=== PATIENT | male | born 1970 | race Caucasian/White ===

== ENCOUNTER 2019-12-09 10:07 | Emergency (ER) | payer SELFPAY ==
[~2019-12-09] VITALS: Ht 177.8 cm; Wt 81.6 kg
[2019-12-09 10:30] VITALS: BP_SYST 166
--- NOTE | 2019-12-09 10:30 | NUR ---
Patient to ER bed 7 to gown for evaluation. Side rails up.
--- NOTE | 2019-12-09 10:31 | NUR ---
Patient is awake, alert, and oriented x4. Patient reports pain in lower left back started 2 weeks ago, got a little better. Yesterday felt a "zap". He is off today and decided to come to the ER to get checked out.
--- NOTE | 2019-12-09 10:40 | NUR ---
ER Dr. Harris at bedside examining patient.
[2019-12-09] MEDS ORDERED: KETOROLAC TROMETHAMINE 60 MG/2 ML VIAL IM ONE ×2 (10:45→11:03)
--- NOTE | 2019-12-09 10:56 | NUR ---
Patient transported to radiology via wheelchair, accompanied by optical fabrication technician.
--- NOTE | 2019-12-09 11:15 | NUR ---
Returned from radiology, back to [facility].
[2019-12-09 12:03] VITALS: BP_SYST 146
--- NOTE | 2019-12-09 12:03 | NUR ---
Patient given written and verbal discharge instructions and verbalizes understanding. ER MD Harris discussed with patient the results and treatment provided. Patient in stable condition. ID arm band removed. Rx of Robaxin, Naprosyn given. Patient educated on pain management and to follow up with PMD. Pain Scale 0. Opportunity for questions provided and answered. Medication side effect fact sheet provided.
== END 2019-12-09 12:03 | disposition home or self-care (01) ==
LOC: SED 10:07
DX: M54.5 Low back pain (principal)
CPT/HCPCS: 72100; 96372; 99283; J1885

== ENCOUNTER 2020-01-03 09:10 | Emergency (ER) | payer OTHER ==
[~2020-01-03] VITALS: Ht 177.8 cm; Wt 89.8 kg
[2020-01-03 09:15] VITALS: BP_SYST 166
[2020-01-03] MEDS ORDERED: NACL 0.9% 1,000 ML IV ONE (09:20)
[2020-01-03] MEDS ORDERED: KETOROLAC TROMETHAMINE 30 MG VIAL IVP ONE (09:30)
[2020-01-03] MEDS ORDERED: DEXAMETHASONE SOD PHOSPHATE 10 MG/ML VIAL IVP ONE (09:30)
[2020-01-03 09:47] LABS: BASOPHILS % (AUTO) 0.5 % (0.0-2.0); EOSINOPHILS # (AUTO) 0.2 K/uL (0.0-0.4); EOSINOPHILS % (AUTO) 3.1 % (0.0-4.0); HEMATOCRIT 46.3 % (36-54); HEMOGLOBIN 15.7 g/dL (14.0-18.0); LYMPHOCYTES # (AUTO) 1.5 K/uL (1.0-5.5); LYMPHOCYTES % (AUTO) 24.2 % (20.5-51.5); MEAN CORPUSCULAR HEMOGLOBIN 32 pg (27-31); MEAN CORPUSCULAR HGB CONC 34 % (32-36); MEAN CORPUSCULAR VOLUME 94 fL (79.0-98.0); MONOCYTES # (AUTO) 0.5 K/uL (0.0-1.0); MONOCYTES % (AUTO) 7.4 % (1.7-9.3); NEUTROPHILS % (AUTO) 64.8 % (40.0-70.0); PLATELET COUNT (AUTO) 273 K/uL (130-430); RED BLOOD CELL COUNT(AUTO) 4.94 MIL/uL (4.2-6.2); RED CELL DISTRIBUTION WIDTH 13.1 % (9.0-15.0); WHITE BLOOD COUNT (AUTO) 6.2 K/uL (4.8-10.8)
[2020-01-03 09:54] LABS: CALCIUM 8.9 mg/dL (8.4-11.0); CREATININE 0.76 mg/dL (0.55-1.30); POTASSIUM 3.7 mmol/L (3.5-5.1)
[2020-01-03 10:00] LABS: ALBUMIN 3.8 g/dL (3.4-4.8); TOTAL BILIRUBIN 0.4 mg/dL (0.0-1.0)
[2020-01-03 10:15] LABS: BILIRUBIN,URINE NEGATIVE (NEGATIVE); BLOOD, URINE NEGATIVE (NEGATIVE); CLARITY/URINE CLEAR (CLEAR); COLOR,URINE YELLOW (YELLOW); GLUCOSE,URINE NEGATIVE (NEGATIVE); KETONES,URINE NEGATIVE (NEGATIVE); LEUKOCYTE ESTERASE ,URINE NEGATIVE (NEGATIVE); NITRITE, URINE NEGATIVE (NEGATIVE); PH,URINE 6.5 (5.0-8.0); PROTEIN URINE NEGATIVE (NEGATIVE); UROBILINOGEN,URINE 0.2 (0.2-1.0)
[2020-01-03 11:45] VITALS: BP_SYST 136
== END 2020-01-03 11:45 | disposition home or self-care (01) ==
LOC: SED 09:10
DX: M54.5 Low back pain (principal); M62.830 Muscle spasm of back; F17.210 Nicotine dependence, cigarettes, uncomplicated
CPT/HCPCS: 36415; 80053; 81003; 85025; 96374; 96375; 99283; J1100; J1885; J7030

== ENCOUNTER 2020-02-01 11:29 | Emergency (ER) | payer OTHER ==
[~2020-02-01] VITALS: Ht 177.8 cm; Wt 89.8 kg
[2020-02-01 11:40] VITALS: BP_SYST 153
--- NOTE | 2020-02-01 11:48 | NUR ---
Patient triaged and placed in waiting room. VSS and patient appears in no acute distress at this time. Accompanied by self, awaiting available bed, and MD notified of need for MSE.
--- NOTE | 2020-02-01 12:03 | NUR ---
Patient to ER bed 04 to gown for evaluation. Side rails up.
--- NOTE | 2020-02-01 12:07 | NUR ---
ER Dr. Johnston at bedside examining patient.
--- NOTE | 2020-02-01 12:07 | NUR ---
Patient ambulated to the bathroom with a steady gait. Urine specimen collected.
[2020-02-01] MEDS ORDERED: KETOROLAC TROMETHAMINE 60 MG/2 ML VIAL IM ONE (12:15)
--- NOTE | 2020-02-01 12:19 | NUR ---
Administered Toradol 60mg IM as ordered by Dr. Johnston. Patient tolerated the medication well. See eMAR for details.
--- NOTE | 2020-02-01 12:24 | NUR ---
Patient is taken to CT, in stable condition.
[2020-02-01 12:28] LABS: BASOPHILS % (AUTO) 0.6 % (0.0-2.0); EOSINOPHILS # (AUTO) 0.3 K/uL (0.0-0.4); EOSINOPHILS % (AUTO) 3.6 % (0.0-4.0); HEMATOCRIT 45.9 % (36-54); HEMOGLOBIN 15.5 g/dL (14.0-18.0); LYMPHOCYTES # (AUTO) 2.1 K/uL (1.0-5.5); LYMPHOCYTES % (AUTO) 27.2 % (20.5-51.5); MEAN CORPUSCULAR HEMOGLOBIN 31 pg (27-31); MEAN CORPUSCULAR HGB CONC 34 % (32-36); MEAN CORPUSCULAR VOLUME 93 fL (79.0-98.0); MONOCYTES # (AUTO) 0.7 K/uL (0.0-1.0); MONOCYTES % (AUTO) 9.2 % (1.7-9.3); NEUTROPHILS # (AUTO) 4.6 K/uL (1.8-7.7); NEUTROPHILS % (AUTO) 59.4 % (40.0-70.0); PLATELET COUNT (AUTO) 313 K/uL (130-430); RED BLOOD CELL COUNT(AUTO) 4.95 MIL/uL (4.2-6.2); RED CELL DISTRIBUTION WIDTH 12.8 % (9.0-15.0); WHITE BLOOD COUNT (AUTO) 7.7 K/uL (4.8-10.8)
[2020-02-01 12:29] LABS: BILIRUBIN,URINE NEGATIVE (NEGATIVE); BLOOD, URINE NEGATIVE (NEGATIVE); CLARITY/URINE CLEAR (CLEAR); COLOR,URINE YELLOW (YELLOW); GLUCOSE,URINE NEGATIVE (NEGATIVE); KETONES,URINE NEGATIVE (NEGATIVE); LEUKOCYTE ESTERASE ,URINE NEGATIVE (NEGATIVE); NITRITE, URINE NEGATIVE (NEGATIVE); PROTEIN URINE NEGATIVE (NEGATIVE); UROBILINOGEN,URINE 0.2 (0.2-1.0)
[2020-02-01 12:42] LABS: CALCIUM 9.2 mg/dL (8.4-11.0); CREATININE 0.75 mg/dL (0.55-1.30)
[2020-02-01 12:50] LABS: PROTHROMBIN TIME 9.7 SECS (9.5-12.5)
[2020-02-01 12:52] LABS: ALBUMIN 3.7 g/dL (3.4-4.8); TOTAL BILIRUBIN 0.3 mg/dL (0.0-1.0)
--- NOTE | 2020-02-01 14:00 | NUR ---
Patient given written and verbal discharge instructions and verbalizes understanding. ER MD discussed with patient the results and treatment provided. Patient in stable condition. ID arm band removed. Rx of [place], Motrin given. Patient educated on pain management and to follow up with PMD. Pain Scale 0/10. Opportunity for questions provided and answered. Medication side effect fact sheet provided.
[2020-02-01 14:01] VITALS: BP_SYST 123
== END 2020-02-01 14:01 | disposition home or self-care (01) ==
LOC: SED 11:29
DX: M54.5 Low back pain (principal); I10 Essential (primary) hypertension
CPT/HCPCS: 36415; 74176; 80053; 81003; 82150; 83690; 85025; 85610; 85730; 96372; 99284; J1885

== ENCOUNTER 2020-02-04 07:40 | Inpatient (IN) | payer OTHER ==
[~2020-02-04] VITALS: Ht 179.1 cm; Wt 83.0 kg
[2020-02-04] MEDS ORDERED: IBUP800T54 PO (07:50)
[2020-02-04] MEDS ORDERED: HYDR-2296 PO (07:50)
[2020-02-04 07:51] VITALS: BP_SYST 143
[2020-02-04] MEDS ORDERED: MORPHINE 4 MG/ML INJ. SYRINGE IVP ONE (08:15)
[2020-02-04] MEDS ORDERED: NACL 0.9% 1,000 ML IV ONE ×2 (09:00→09:30)
[2020-02-04] MEDS ORDERED: ONDANSETRON HCL 4 MG/2 ML VIAL IVP ONE ×2 (09:00→11:30)
[2020-02-04 09:05] LABS: BASOPHILS % (AUTO) 0.1 % (0.0-2.0); HEMATOCRIT 41.8 % (36-54); HEMOGLOBIN 14.1 g/dL (14.0-18.0); LYMPHOCYTES # (AUTO) 0.3 K/uL (1.0-5.5); LYMPHOCYTES % (AUTO) 1.7 % (20.5-51.5); MEAN CORPUSCULAR HEMOGLOBIN 31 pg (27-31); MEAN CORPUSCULAR HGB CONC 34 % (32-36); MEAN CORPUSCULAR VOLUME 92 fL (79.0-98.0); MONOCYTES # (AUTO) 0.8 K/uL (0.0-1.0); MONOCYTES % (AUTO) 4.4 % (1.7-9.3); NEUTROPHILS # (AUTO) 16.8 K/uL (1.8-7.7); NEUTROPHILS % (AUTO) 93.8 % (40.0-70.0); PLATELET COUNT (AUTO) 276 K/uL (130-430); RED BLOOD CELL COUNT(AUTO) 4.53 MIL/uL (4.2-6.2); RED CELL DISTRIBUTION WIDTH 12.8 % (9.0-15.0); WHITE BLOOD COUNT (AUTO) 17.9 K/uL (4.8-10.8)
[2020-02-04 09:06] LABS: CALCIUM 8.8 mg/dL (8.4-11.0); CREATININE 0.75 mg/dL (0.55-1.30); POTASSIUM 3.6 mmol/L (3.5-5.1)
[2020-02-04 09:10] LABS: ALBUMIN 3.6 g/dL (3.4-4.8); TOTAL BILIRUBIN 0.6 mg/dL (0.0-1.0)
[2020-02-04] MEDS ORDERED: PIPERACILLIN/TAZO 3.375 GM in NS 50 ML IV ONE (09:30)
[2020-02-04] MEDS ORDERED: VANCOMYCIN HCL 1,000 MG in NS 250 ML IV ONE (09:30)
[2020-02-04 09:35] LABS: PROTHROMBIN TIME 9.9 SECS (9.5-12.5)
[2020-02-04] MEDS ORDERED: VANCOMYCIN HCL 1000 MG/VIAL IV ONE (10:09)
[2020-02-04] MEDS ORDERED: PIPERACILLIN/TAZOBACTAM 3.375 GM/VIAL (ZOSYN) IV ONE (10:10)
[2020-02-04 10:24] LABS: BILIRUBIN,URINE NEGATIVE (NEGATIVE); BLOOD, URINE NEGATIVE (NEGATIVE); CLARITY/URINE CLEAR (CLEAR); COLOR,URINE YELLOW (YELLOW); GLUCOSE,URINE NEGATIVE (NEGATIVE); KETONES,URINE NEGATIVE (NEGATIVE); LEUKOCYTE ESTERASE ,URINE NEGATIVE (NEGATIVE); NITRITE, URINE NEGATIVE (NEGATIVE); PROTEIN URINE NEGATIVE (NEGATIVE); UROBILINOGEN,URINE 0.2 (0.2-1.0)
[2020-02-04] MEDS: MORPHINE 2 MG/ML INJ. SYRINGE IVP PRN (10:41)
[2020-02-04] MEDS ORDERED: ONDANSETRON HCL 4 MG/2 ML VIAL IVP PRN ×3 (10:45→13:15)
[2020-02-04] MEDS ORDERED: ACETAMINOPHEN 325 MG TABLET PO PRN (10:45)
[2020-02-04] MEDS ORDERED: MAGNESIUM SULFATE 50 ML IV PRN (10:45)
[2020-02-04] MEDS ORDERED: DOCUSATE SODIUM 100 MG CAPSULE PO PRN (10:45)
[2020-02-04] MEDS ORDERED: ZOLPIDEM TARTRATE 5 MG TABLET PO PRN (10:45)
[2020-02-04] MEDS ORDERED: LORazepam 2 MG/ML VIAL IVP PRN (10:45)
[2020-02-04] MEDS ORDERED: MORPHINE 2 MG/ML INJ. SYRINGE IVP PRN ×2 (10:45)
[2020-02-04] MEDS ORDERED: MUPIROCIN 2% TOPICAL OINTMENT 22 GM NS PRN (10:45)
[2020-02-04 10:52] VITALS: BP_SYST 151
[2020-02-04] MEDS ORDERED: VANCOMYCIN HCL 1,000 MG in NS 250 ML IV SCH (11:00)
[2020-02-04] MEDS ORDERED: FLU VACC QS2019-20 36MOS UP/PF 60 MCG/0.5 ML SYRINGE I.M. PRN (11:00)
[2020-02-04] MEDS ORDERED: HEPARIN SODIUM,PORCINE 5000 UNITS/ML VIAL SUBCUT ONE (11:30)
[2020-02-04] MEDS ORDERED: PIPERACILLIN/TAZOBACTAM 3.375 GM/DEX-IS 50 ML PIGGYBACK IV ONE (11:30)
[2020-02-04] MEDS ORDERED: HYDROmorphone 1 MG INJ. 1 MG/ML AMPUL IVP ONE (11:30)
[2020-02-04] MEDS ORDERED: ISOFLURANE 15 MIN GAS INH ONE (11:30)
[2020-02-04] MEDS ORDERED: fentaNYL CITRATE/PF 100 MCG/2 ML AMP IVP ONE (11:30)
[2020-02-04] MEDS ORDERED: ROCURONIUM BROMIDE 10 MG/ML (ZEMURON) IV ONE (11:30)
[2020-02-04] MEDS ORDERED: LR 1,000 ML IV.SOLN IV ONE (11:30)
[2020-02-04] MEDS ORDERED: BUPIVACAINE LIPOSOME/PF 266 MG/20 ML VIAL INFIL ONE (11:30)
[2020-02-04] MEDS ORDERED: SUCCINYLCHOLINE CHLORIDE 20 MG/ML(QUELICIN) IVP ONE (11:30)
[2020-02-04] MEDS ORDERED: DEXAMETHASONE SOD PHOSPHATE 4 MG/ML VIAL IVP ONE (11:30)
[2020-02-04] MEDS ORDERED: PROPOFOL 200MG/ 20ML VIAL (DIPRIVAN) IV ONE (11:30)
[2020-02-04] MEDS: PIPERACILLIN/TAZO 3.375/DEX-IS 50 ML IV SCH ×3 (12:00→23:08)
[2020-02-04] MEDS ORDERED: LR 1,000 ML IV SCH (13:08)
[2020-02-04] MEDS ORDERED: HYDROmorphone 1 MG INJ. 1 MG/ML AMPUL IVP PRN (13:15)
[2020-02-04] MEDS: LABETALOL 100 MG/ 20ML VIAL ONE ×2 (13:20→13:25)
[2020-02-04] MEDS: HYDROmorphone 1 MG INJ. 1 MG/ML AMPUL IVP PRN ×4 (13:40→14:10)
[2020-02-04] MEDS ORDERED: HYDROmorphone 1 MG INJ. 1 MG/ML AMPUL ONE ×2 (13:54→14:21)
[2020-02-04] MEDS ORDERED: NALOXONE HCL 0.4 MG/ML AMP (NARCAN) IVP PRN (14:00)
[2020-02-04] MEDS: HYDROMORPHONE PCA 10 mg/50 mL IV PRN (15:04)
[2020-02-04] MEDS: D5NS 1,000 ML IV SCH (15:21)
[2020-02-04] MEDS ORDERED: COMMUNICATION ORDER XX ONE ×2 (18:00→20:00)
[2020-02-04 19:10] VITALS: BP_SYST 145
[2020-02-04 20:00] VITALS: BP_SYST 145
[2020-02-04] MEDS: FLUCONAZOLE 200 mg/ NS 100 ML IV SCH (20:36)
[2020-02-04] MEDS: PANTOPRAZOLE SODIUM 40 MG/VIAL (PROTONIX) IVP SCH (20:36)
[2020-02-05] VITALS: BP_SYST 135
[2020-02-05] MEDS ORDERED: guaiFENesin/DEXTROMETHORPHAN 10 ML UDC PO ONE (00:45)
[2020-02-05] MEDS: D5NS 1,000 ML IV SCH ×3 (02:36→14:28)
[2020-02-05] MEDS ORDERED: HEPARIN SODIUM,PORCINE 5000 UNITS/ML VIAL SUBCUT ONE (05:00)
[2020-02-05] MEDS: PIPERACILLIN/TAZO 3.375/DEX-IS 50 ML IV SCH ×4 (05:07→23:51)
[2020-02-05 07:22] LABS: BASOPHILS % (AUTO) 0.1 % (0.0-2.0); HEMATOCRIT 36.7 % (36-54); HEMOGLOBIN 12.2 g/dL (14.0-18.0); LYMPHOCYTES # (AUTO) 1.2 K/uL (1.0-5.5); LYMPHOCYTES % (AUTO) 8.3 % (20.5-51.5); MEAN CORPUSCULAR HEMOGLOBIN 31 pg (27-31); MEAN CORPUSCULAR HGB CONC 33 % (32-36); MEAN CORPUSCULAR VOLUME 94 fL (79.0-98.0); MONOCYTES % (AUTO) 6.7 % (1.7-9.3); NEUTROPHILS # (AUTO) 12.1 K/uL (1.8-7.7); NEUTROPHILS % (AUTO) 84.9 % (40.0-70.0); PLATELET COUNT (AUTO) 251 K/uL (130-430); RED BLOOD CELL COUNT(AUTO) 3.89 MIL/uL (4.2-6.2); RED CELL DISTRIBUTION WIDTH 13.2 % (9.0-15.0); WHITE BLOOD COUNT (AUTO) 14.2 K/uL (4.8-10.8)
[2020-02-05 07:28] LABS: CALCIUM 8.5 mg/dL (8.4-11.0); CREATININE 0.73 mg/dL (0.55-1.30); POTASSIUM 4.1 mmol/L (3.5-5.1)
[2020-02-05 08:00] VITALS: BP_SYST 144
[2020-02-05] MEDS: PANTOPRAZOLE SODIUM 40 MG/VIAL (PROTONIX) IVP SCH ×2 (08:26→20:41)
[2020-02-05] MEDS ORDERED: ENOXAPARIN SODIUM 40 MG/0.4 ML SYRINGE SUBCUT SCH (09:00)
[2020-02-05 12:00] VITALS: BP_SYST 149
[2020-02-05] MEDS: MORPHINE 2 MG/ML INJ. SYRINGE IVP PRN (14:29)
[2020-02-05] MEDS: HYDROMORPHONE PCA 10 mg/50 mL IV PRN (16:46)
[2020-02-05] MEDS ORDERED: IPRATROPIUM/ALBUTEROL SULFATE 3 ML AMPUL.NEB (DUONEB) ONE (18:12)
[2020-02-05] MEDS: FLUCONAZOLE 200 mg/ NS 100 ML IV SCH (18:31)
[2020-02-05 20:00] VITALS: BP_SYST 139; BP_SYST 150
[2020-02-05] MEDS: HEPARIN SODIUM,PORCINE 5000 UNITS/ML VIAL SUBCUT SCH (20:44)
[2020-02-06] VITALS: BP_SYST 142
[2020-02-06] MEDS ORDERED: IPRATROPIUM/ALBUTEROL SULFATE 3 ML AMPUL.NEB (DUONEB) ONE (00:03)
[2020-02-06] MEDS: IPRATROPIUM/ALBUTEROL SULFATE 3 ML AMPUL.NEB (DUONEB) INH SCH ×3 (00:13→19:29)
[2020-02-06] MEDS: D5NS 1,000 ML IV SCH ×2 (01:59→12:24)
[2020-02-06] MEDS: PIPERACILLIN/TAZO 3.375/DEX-IS 50 ML IV SCH ×4 (05:25→23:39)
[2020-02-06 06:35] LABS: BASOPHILS % (AUTO) 0.3 % (0.0-2.0); EOSINOPHILS # (AUTO) 0.1 K/uL (0.0-0.4); EOSINOPHILS % (AUTO) 1.2 % (0.0-4.0); HEMATOCRIT 34.5 % (36-54); HEMOGLOBIN 11.4 g/dL (14.0-18.0); LYMPHOCYTES # (AUTO) 1.3 K/uL (1.0-5.5); LYMPHOCYTES % (AUTO) 16.7 % (20.5-51.5); MEAN CORPUSCULAR HEMOGLOBIN 31 pg (27-31); MEAN CORPUSCULAR HGB CONC 33 % (32-36); MEAN CORPUSCULAR VOLUME 95 fL (79.0-98.0); MONOCYTES # (AUTO) 0.5 K/uL (0.0-1.0); NEUTROPHILS # (AUTO) 5.6 K/uL (1.8-7.7); NEUTROPHILS % (AUTO) 74.8 % (40.0-70.0); PLATELET COUNT (AUTO) 242 K/uL (130-430); RED BLOOD CELL COUNT(AUTO) 3.64 MIL/uL (4.2-6.2); WHITE BLOOD COUNT (AUTO) 7.5 K/uL (4.8-10.8)
[2020-02-06 06:40] LABS: CREATININE 0.76 mg/dL (0.55-1.30); POTASSIUM 3.4 mmol/L (3.5-5.1)
[2020-02-06 08:00] VITALS: BP_SYST 152
[2020-02-06] MEDS: PANTOPRAZOLE SODIUM 40 MG/VIAL (PROTONIX) IVP SCH ×2 (08:28→20:13)
[2020-02-06] MEDS: HEPARIN SODIUM,PORCINE 5000 UNITS/ML VIAL SUBCUT SCH ×2 (08:29→20:14)
[2020-02-06 12:00] VITALS: BP_SYST 154
[2020-02-06] MEDS: KCL 20 mEq in D5/0.45NS 1000mL 1,000 ML IV SCH (15:42)
[2020-02-06] MEDS: HYDROMORPHONE PCA 10 mg/50 mL IV PRN (15:43)
[2020-02-06 16:00] VITALS: BP_SYST 153
[2020-02-06] MEDS: FLUCONAZOLE 200 mg/ NS 100 ML IV SCH (18:41)
[2020-02-06 20:00] VITALS: BP_SYST 151
[2020-02-07 00:50] VITALS: BP_SYST 146
[2020-02-07] MEDS: KCL 20 mEq in D5/0.45NS 1000mL 1,000 ML IV SCH ×3 (02:13→21:00)
[2020-02-07] MEDS: PIPERACILLIN/TAZO 3.375/DEX-IS 50 ML IV SCH ×3 (05:24→17:29)
[2020-02-07 06:47] LABS: BASOPHILS % (AUTO) 0.4 % (0.0-2.0); EOSINOPHILS # (AUTO) 0.2 K/uL (0.0-0.4); EOSINOPHILS % (AUTO) 3.4 % (0.0-4.0); HEMOGLOBIN 11.8 g/dL (14.0-18.0); LYMPHOCYTES # (AUTO) 1.1 K/uL (1.0-5.5); LYMPHOCYTES % (AUTO) 17.6 % (20.5-51.5); MEAN CORPUSCULAR HEMOGLOBIN 32 pg (27-31); MEAN CORPUSCULAR HGB CONC 34 % (32-36); MEAN CORPUSCULAR VOLUME 93 fL (79.0-98.0); MONOCYTES # (AUTO) 0.6 K/uL (0.0-1.0); MONOCYTES % (AUTO) 9.3 % (1.7-9.3); NEUTROPHILS # (AUTO) 4.5 K/uL (1.8-7.7); NEUTROPHILS % (AUTO) 69.3 % (40.0-70.0); PLATELET COUNT (AUTO) 290 K/uL (130-430); RED BLOOD CELL COUNT(AUTO) 3.76 MIL/uL (4.2-6.2); RED CELL DISTRIBUTION WIDTH 12.6 % (9.0-15.0); WHITE BLOOD COUNT (AUTO) 6.5 K/uL (4.8-10.8)
[2020-02-07 06:51] LABS: CALCIUM 8.8 mg/dL (8.4-11.0); CREATININE 0.71 mg/dL (0.55-1.30); POTASSIUM 3.9 mmol/L (3.5-5.1)
[2020-02-07 08:00] VITALS: BP_SYST 155
[2020-02-07] MEDS: PANTOPRAZOLE SODIUM 40 MG/VIAL (PROTONIX) IVP SCH ×2 (08:32→21:15)
[2020-02-07] MEDS: HEPARIN SODIUM,PORCINE 5000 UNITS/ML VIAL SUBCUT SCH ×2 (08:32→21:16)
[2020-02-07] MEDS ORDERED: GASTROGRAFIN 120 ML ONE (11:19)
[2020-02-07 12:00] VITALS: BP_SYST 149
[2020-02-07] MEDS ORDERED: MORPHINE 2 MG/ML INJ. SYRINGE IVP PRN (12:00)
[2020-02-07] MEDS: MORPHINE 2 MG/ML INJ. SYRINGE IVP PRN ×2 (14:28→22:13)
[2020-02-07 16:00] VITALS: BP_SYST 158
[2020-02-07] MEDS: IPRATROPIUM/ALBUTEROL SULFATE 3 ML AMPUL.NEB (DUONEB) INH SCH ×2 (17:09→20:00)
[2020-02-07] MEDS: FLUCONAZOLE 200 mg/ NS 100 ML IV SCH (20:34)
[2020-02-08] MEDS: PIPERACILLIN/TAZO 3.375/DEX-IS 50 ML IV SCH ×5 (00:24→23:18)
[2020-02-08] MEDS: MORPHINE 2 MG/ML INJ. SYRINGE IVP PRN ×4 (04:37→21:19)
[2020-02-08] MEDS: KCL 20 mEq in D5/0.45NS 1000mL 1,000 ML IV SCH ×3 (06:12→23:18)
[2020-02-08 06:59] LABS: BASOPHILS % (AUTO) 0.4 % (0.0-2.0); EOSINOPHILS # (AUTO) 0.2 K/uL (0.0-0.4); EOSINOPHILS % (AUTO) 2.7 % (0.0-4.0); HEMATOCRIT 36.1 % (36-54); HEMOGLOBIN 12.4 g/dL (14.0-18.0); LYMPHOCYTES # (AUTO) 1.2 K/uL (1.0-5.5); LYMPHOCYTES % (AUTO) 21.4 % (20.5-51.5); MEAN CORPUSCULAR HEMOGLOBIN 31 pg (27-31); MEAN CORPUSCULAR HGB CONC 34 % (32-36); MEAN CORPUSCULAR VOLUME 91 fL (79.0-98.0); MONOCYTES # (AUTO) 0.6 K/uL (0.0-1.0); MONOCYTES % (AUTO) 11.1 % (1.7-9.3); NEUTROPHILS # (AUTO) 3.6 K/uL (1.8-7.7); NEUTROPHILS % (AUTO) 64.4 % (40.0-70.0); PLATELET COUNT (AUTO) 350 K/uL (130-430); RED BLOOD CELL COUNT(AUTO) 3.95 MIL/uL (4.2-6.2); RED CELL DISTRIBUTION WIDTH 12.5 % (9.0-15.0); WHITE BLOOD COUNT (AUTO) 5.6 K/uL (4.8-10.8)
[2020-02-08 07:03] LABS: CALCIUM 8.4 mg/dL (8.4-11.0); CREATININE 0.7 mg/dL (0.55-1.30)
[2020-02-08 08:00] VITALS: BP_SYST 153
[2020-02-08] MEDS: IPRATROPIUM/ALBUTEROL SULFATE 3 ML AMPUL.NEB (DUONEB) INH SCH ×2 (08:02→19:46)
[2020-02-08] MEDS: PANTOPRAZOLE SODIUM 40 MG/VIAL (PROTONIX) IVP SCH ×2 (08:09→21:15)
[2020-02-08] MEDS: HEPARIN SODIUM,PORCINE 5000 UNITS/ML VIAL SUBCUT SCH ×2 (08:11→21:18)
[2020-02-08 08:14] LABS: POTASSIUM 2.9 mmol/L (3.5-5.1)
[2020-02-08] MEDS: POTASSIUM CHLORIDE 20 MEQ TAB.PRT.SR PO PRN (08:28)
[2020-02-08] MEDS ORDERED: POTASSIUM CHLORIDE 20 MEQ TAB.PRT.SR PO ONE (08:30)
[2020-02-08 11:13] VITALS: BP_SYST 133
[2020-02-08 16:29] VITALS: BP_SYST 142
[2020-02-08] MEDS: FLUCONAZOLE 200 mg/ NS 100 ML IV SCH (18:23)
[2020-02-08 20:00] VITALS: BP_SYST 142
[2020-02-09] VITALS: BP_SYST 158
[2020-02-09] MEDS: MORPHINE 2 MG/ML INJ. SYRINGE IVP PRN ×4 (03:14→23:50)
[2020-02-09] MEDS: KCL 20 mEq in D5/0.45NS 1000mL 1,000 ML IV SCH (05:52)
[2020-02-09] MEDS: PIPERACILLIN/TAZO 3.375/DEX-IS 50 ML IV SCH ×4 (05:52→23:49)
[2020-02-09 06:25] LABS: CALCIUM 8.5 mg/dL (8.4-11.0); CREATININE 0.67 mg/dL (0.55-1.30); POTASSIUM 3.1 mmol/L (3.5-5.1)
[2020-02-09 06:30] LABS: BASOPHILS % (AUTO) 0.5 % (0.0-2.0); EOSINOPHILS # (AUTO) 0.4 K/uL (0.0-0.4); EOSINOPHILS % (AUTO) 5.7 % (0.0-4.0); HEMATOCRIT 35.5 % (36-54); LYMPHOCYTES # (AUTO) 1.1 K/uL (1.0-5.5); LYMPHOCYTES % (AUTO) 17.2 % (20.5-51.5); MEAN CORPUSCULAR HEMOGLOBIN 32 pg (27-31); MEAN CORPUSCULAR HGB CONC 34 % (32-36); MEAN CORPUSCULAR VOLUME 93 fL (79.0-98.0); MONOCYTES # (AUTO) 0.8 K/uL (0.0-1.0); MONOCYTES % (AUTO) 12.6 % (1.7-9.3); NEUTROPHILS # (AUTO) 4.1 K/uL (1.8-7.7); PLATELET COUNT (AUTO) 375 K/uL (130-430); RED BLOOD CELL COUNT(AUTO) 3.82 MIL/uL (4.2-6.2); RED CELL DISTRIBUTION WIDTH 12.8 % (9.0-15.0); WHITE BLOOD COUNT (AUTO) 6.4 K/uL (4.8-10.8)
[2020-02-09] MEDS ORDERED: POTASSIUM CHLORIDE 20 MEQ TAB.PRT.SR PO ONE ×2 (08:45→12:00)
[2020-02-09 08:47] VITALS: BP_SYST 161
[2020-02-09] MEDS: POTASSIUM CHLORIDE 20 MEQ TAB.PRT.SR PO PRN (08:52)
[2020-02-09] MEDS: PANTOPRAZOLE SODIUM 40 MG/VIAL (PROTONIX) IVP SCH ×2 (08:52→21:14)
[2020-02-09] MEDS: HEPARIN SODIUM,PORCINE 5000 UNITS/ML VIAL SUBCUT SCH ×2 (08:55→21:14)
[2020-02-09] MEDS ORDERED: cloNIDine HCL 0.1 MG TABLET PO PRN (09:00)
[2020-02-09] MEDS: IPRATROPIUM/ALBUTEROL SULFATE 3 ML AMPUL.NEB (DUONEB) INH SCH ×2 (09:32→21:41)
[2020-02-09] MEDS: LISINOPRIL 10 MG TABLET (PRINIVIL) PO SCH (11:12)
[2020-02-09 11:15] VITALS: BP_SYST 162
[2020-02-09 14:29] VITALS: BP_SYST 152
[2020-02-09 16:01] VITALS: BP_SYST 138
[2020-02-09] MEDS: FLUCONAZOLE 200 mg/ NS 100 ML IV SCH (18:45)
[2020-02-09 20:00] VITALS: BP_SYST 147
[2020-02-10 00:30] VITALS: BP_SYST 133
[2020-02-10] MEDS: PIPERACILLIN/TAZO 3.375/DEX-IS 50 ML IV SCH (05:01)
[2020-02-10] MEDS: MORPHINE 2 MG/ML INJ. SYRINGE IVP PRN ×2 (05:04→09:37)
[2020-02-10] MEDS: IPRATROPIUM/ALBUTEROL SULFATE 3 ML AMPUL.NEB (DUONEB) INH SCH (07:42)
[2020-02-10 08:00] VITALS: BP_SYST 134
[2020-02-10] MEDS ORDERED: AMOX-423 PO (09:18)
[2020-02-10] MEDS: PANTOPRAZOLE SODIUM 40 MG/VIAL (PROTONIX) IVP SCH (09:20)
[2020-02-10] MEDS: LISINOPRIL 10 MG TABLET (PRINIVIL) PO SCH (09:21)
[2020-02-10] MEDS: HEPARIN SODIUM,PORCINE 5000 UNITS/ML VIAL SUBCUT SCH (09:22)
[2020-02-10 11:47] VITALS: BP_SYST 138
[2020-02-10 12:15] VITALS: BP_SYST 138
[2020-02-13] MEDS ORDERED: CLAR500T PO (09:35)
[2020-02-13] MEDS ORDERED: AMOX500C2 PO (09:35)
[2020-02-13] MEDS ORDERED: LACT1CAP57 PO (09:35)
[2020-02-13] MEDS ORDERED: OMEP20CA11 PO (09:35)
== END 2020-02-10 14:20 | disposition home or self-care (01) | DRG 853 ==
LOC: SED 07:40 → STU 09:39 → SMU 02-09 15:05
PROVIDERS: ADMIT General Practice; ATTEND General Practice
PROC: 0DU607Z Supplement Stomach with Autologous Tissue Substitute, Open Approach (ICD-10-PCS; principal; 2020-02-04 11:00)
DX: A41.9 Sepsis, unspecified organism (principal); K25.5 Chronic or unspecified gastric ulcer with perforation; I10 Essential (primary) hypertension; F17.210 Nicotine dependence, cigarettes, uncomplicated; F10.10 Alcohol abuse, uncomplicated; Y90.9 Presence of alcohol in blood, level not specified; M54.9 Dorsalgia, unspecified; E87.6 Hypokalemia; Z87.442 Personal history of urinary calculi
CPT/HCPCS: 36415; 71045; 74240-TC; 80048; 80053; 81003; 83036; 83605; 83690-TC; 83735-TC; 84132-TC; 85025; 85610-TC; 85730-TC; 86677; 87040-TC; 87070; 87070-TC; 87075-TC; 87081; 87086; 93005; 94010; 94640; 94760; 96361; 96374; 96375; 99285; C9113; C9290; G0378; J0330; J1100; J1170; J1450; J1644; J1650; J2060; J2270; J2405; J2543; J2704; J3010; J3370; J3490; J7030; J7042; J7050; J7120; Q9963

== ENCOUNTER 2021-03-09 09:51 | Emergency (ER) | payer MEDICAID, OTHER ==
[~2021-03-09] VITALS: Ht 177.8 cm; Wt 95.7 kg
[2021-03-09 09:51] VITALS: BP_SYST 137
[~2021-03-09 09:51] MED LIST: AMOX-423 PO; AMOX500C2 PO; CLAR500T PO; HYDR-2296 PO; LACT1CAP57 PO; OMEP20CA15 PO
[2021-03-09] MEDS ORDERED: LISI1TAB29 PO (10:33)
[2021-03-09] MEDS ORDERED: VARE0.5T PO (10:33)
[2021-03-09] MEDS ORDERED: ALBMDI INH (10:33)
[2021-03-09 10:47] VITALS: BP_SYST 137
== END 2021-03-09 10:50 | disposition home or self-care (01) ==
LOC: SED 09:51
DX: R06.2 Wheezing (principal); I10 Essential (primary) hypertension; F17.200 Nicotine dependence, unspecified, uncomplicated; Z79.899 Other long term (current) drug therapy
CPT/HCPCS: 71045; 93005; 99283

== ENCOUNTER 2021-04-21 11:08 | Emergency (ER) | payer MEDICAID ==
[~2021-04-21] VITALS: Ht 180.3 cm; Wt 95.7 kg
[2021-04-21 11:08] VITALS: BP_SYST 148
[~2021-04-21 11:08] MED LIST changes: +ALBMDI INH; +LISI1TAB29 PO; +VARE0.5T PO
[2021-04-21] MEDS ORDERED: ACET-2634 PO (11:35)
[2021-04-21 11:53] VITALS: BP_SYST 147
== END 2021-04-21 11:50 | disposition home or self-care (01) ==
LOC: SED 11:08
DX: J02.8 Acute pharyngitis due to other specified organisms (principal); B97.89 Other viral agents as the cause of diseases classified elsewhere; I10 Essential (primary) hypertension; Z79.899 Other long term (current) drug therapy
CPT/HCPCS: 99282

== ENCOUNTER 2021-06-19 10:00 | Observation (INO) | payer MEDICAID ==
[~2021-06-19] VITALS: Ht 162.6 cm; Wt 69.9 kg
[~2021-06-19 10:00] MED LIST changes: +ACET-2634 PO
[2021-06-19 10:12] VITALS: BP_SYST 129
--- NOTE | 2021-06-19 10:12 | NUR ---
Patient to ER bed 8 to gown for evaluation. Side rails up. Report given to Teresita Villalta
--- NOTE | 2021-06-19 10:15 | NUR ---
Pt presents to ED with c/o heartburn x2 days. Pt states he had a bad night with bad reflux and as a result woke up with a sore throat. Pt states he started vomiting this morning. Abd is soft, non distended, no cough or chest pain noted. All VSS.
--- NOTE | 2021-06-19 10:26 | NUR ---
ER at bedside examining patient.
[2021-06-19] MEDS ORDERED: ONDANSETRON 4 MG ODT TAB PO ONE (10:30)
[2021-06-19] MEDS ORDERED: LIDOCAINE VISCOUS 2%, 15 ML UDC MM ONE (10:30)
[2021-06-19] MEDS ORDERED: MAG-AL HYDROX/SIMETH 30 ML UDC PO ONE (10:30)
[2021-06-19 10:45] LABS: BASOPHILS % (AUTO) 0.2 % (0.0-2.0); EOSINOPHILS # (AUTO) 0.1 K/uL (0.0-0.4); EOSINOPHILS % (AUTO) 0.7 % (0.0-4.0); HEMATOCRIT 41.8 % (36-54); HEMOGLOBIN 14.8 g/dL (14.0-18.0); LYMPHOCYTES # (AUTO) 1.7 K/uL (1.0-5.5); LYMPHOCYTES % (AUTO) 12.3 % (20.5-51.5); MEAN CORPUSCULAR HEMOGLOBIN 32 pg (27-31); MEAN CORPUSCULAR HGB CONC 35 % (32-36); MEAN CORPUSCULAR VOLUME 90 fL (79.0-98.0); MONOCYTES % (AUTO) 7.7 % (1.7-9.3); NEUTROPHILS # (AUTO) 10.8 K/uL (1.8-7.7); NEUTROPHILS % (AUTO) 79.1 % (40.0-70.0); PLATELET COUNT (AUTO) 272 K/uL (130-430); RED BLOOD CELL COUNT(AUTO) 4.64 MIL/uL (4.2-6.2); RED CELL DISTRIBUTION WIDTH 13.5 % (9.0-15.0); WHITE BLOOD COUNT (AUTO) 13.7 K/uL (4.8-10.8)
--- NOTE | 2021-06-19 10:45 | NUR ---
Pt medicated with PO meds per md order.
--- NOTE | 2021-06-19 10:50 | NUR ---
Xray at bedside.
[2021-06-19 11:01] LABS: ANION GAP 6 (5-15); CALCIUM 8.9 mg/dL (8.4-11.0); CHLORIDE 91 mmol/L (98-107); CREATININE 0.91 mg/dL (0.55-1.30); GLUCOSE 113 mg/dL (70-99); POTASSIUM 4.1 mmol/L (3.5-5.1); SODIUM SERUM 127 mmol/L (136-145); UREA NITROGEN, BLOOD 15 mg/dL (8-21)
[2021-06-19 11:02] LABS: GFR AFRICAN AMERICAN 112 mL/min (>90)
[2021-06-19 11:19] LABS: ALANINE AMINOTRANSFERASE 42 U/L (12-78); ALBUMIN 4.3 g/dL (3.4-4.8); ASPARTATE AMINOTRANSFERASE 24 U/L (10-37); LIPASE 43 U/L (73-393); TOTAL BILIRUBIN 0.7 mg/dL (0.0-1.0)
[2021-06-19] MEDS ORDERED: NACL 0.9% 1,000 ML IV ONE (11:30)
[2021-06-19] MEDS ORDERED: D5NS 500 ML IV ONE (11:30)
--- NOTE | 2021-06-19 11:47 | NUR ---
# 22 gauge angiocath placed to right hand. Use of asceptic technique. Opsite placed over site. Blood return noted. Blood for lab drawn from site. Flushed with 10 cc of normal saline. No evidence of infiltration noted. Patient tolerated well.
[2021-06-19] MEDS ORDERED: LISI1TAB29 PO (12:15)
[2021-06-19] MEDS ORDERED: D5NS 1,000 ML IV ONE (12:15)
--- NOTE | 2021-06-19 12:59 | NUR ---
spoke w/ Britt HEATH. Unable to get a bed assignment
--- NOTE | 2021-06-19 13:03 | NUR ---
Med Rec complete
[2021-06-19] MEDS ORDERED: ALBUTEROL MDI INHALATION 8 GM INH INH PRN (13:15)
[2021-06-19] MEDS ORDERED: ONDANSETRON HCL 4 MG/2 ML VIAL IVP PRN (13:15)
[2021-06-19] MEDS ORDERED: HYDROCODONE PO SCH (13:15)
[2021-06-19] MEDS ORDERED: ACETAMINOPHEN PO SCH (13:15)
--- NOTE | 2021-06-19 13:20 | NUR ---
NOTES PATIENT FROM [facility] WITH DIAGNOSIS OF GEN, WEAKNESS, DEHYDRATION, ABLE TO WALK WITHOUT DIFFICULTY. NO VOMITING NOTED AT THIS TIME. TOOK LUNCH TOLERATED WELL.
[2021-06-19] MEDS ORDERED: CLARITHROMYCIN 500 MG TABLET PO ONE (13:30)
[2021-06-19] MEDS ORDERED: PANTOPRAZOLE SODIUM 40 MG TAB PO ONE (13:30)
[2021-06-19] MEDS ORDERED: LACTOBACILLUS RHAMNOSUS GG 1 CAP CAPSULE PO ONE (13:30)
[2021-06-19] MEDS ORDERED: ALBUTEROL SULFATE 0.083% 2.5 MG/3 ML VIAL.NEB INH PRN (13:30)
[2021-06-19] MEDS ORDERED: AMOXICILLIN/CLAVULANATE POTASSIUM 500 MG TABLET PO ONE (13:30)
--- NOTE | 2021-06-19 13:31 | NUR ---
Patient will be admitted to care of [facility]. Admitted to med surg unit. Will go to room 103-a. Belongings list completed. Complete and up to date summary report printed. SBAR report to be given at bedside with opportunity for questions.
--- NOTE | 2021-06-19 13:33 | NUR ---
CONSULTATION PAGED REASON FOR CONSULTATION:LEUKOCYTOSIS WAS CONSULT CALED?Y PERSON WHO WAS NOTIFIED:PIEDAD CONSULTING PHYSICIAN: MECHANICAL OXIDIZER SPECIALTY:INFECTIOUS DISEASE MECHANICAL OXIDIZER PHONE NUMBER:[phone] REQUESTING PHYSICIAN:ALEX SOOD
--- NOTE | 2021-06-19 13:36 | NUR ---
CONSULTATION PAGED REASON FOR CONSULTATION:HYPONATREMIA WAS CONSULT CALED?Y PERSON WHO WAS NOTIFIED:PIEDAD CONSULTING PHYSICIAN:ABDIRAHMAN SAMS OUTDOOR STUDIES PROFESSOR SPECIALTY:NEPHRO OUTDOOR STUDIES PROFESSOR PHONE NUMBER:[phone]: REQUESTING PHYSICIAN:ALEX SOOD
[2021-06-19] MEDS ORDERED: lisinopriL 20 MG TABLET PO ONE (13:45)
[2021-06-19] MEDS ORDERED: HYDROCHLOROTHIAZIDE 25 MG TABLET (HCTZ) PO ONE (13:45)
--- NOTE | 2021-06-19 14:10 | NUR ---
IVF IVF STARTED.
--- NOTE | 2021-06-19 14:10 | NUR ---
IVF STARTED IVF OF D5NS STARTED AT 1410 Addendum: 06/22/21 at 1250 by Lucy May RN IVF of D5Ns at 100cc/hr started at 1410.
[2021-06-19] MEDS: ACETAMINOPHEN 500 MG TABLET PO SCH ×2 (14:13→21:40)
[2021-06-19 14:32] VITALS: BP_SYST 130
[2021-06-19 17:53] VITALS: BP_SYST 124
[2021-06-19 18:46] VITALS: BP_SYST 124
--- NOTE | 2021-06-19 18:48 | NUR ---
CARE TAKEN OVER, ALERT, ORIENTED, AND VERY APPROPRIATE. NO COMPLAINT OF SORENESS , NOR PAIN, AFTER ADMINISTRATION OF TYLENOL . AMBULATORY, ON ROOM AIR. APPETITE EXCELLENT FOR ALL MEALS
--- NOTE | 2021-06-19 19:25 | NUR ---
OPENING NOTES RECEIVED PATIENT RESTING, NO SIGNS OF DISTRESS NOTED AT THIS TIME. CALL LIGHT WITHIN REACH, BED ALARM OFF PER PATIENT REQUEST AFTER RISKS AND BENEFITS OF BED ALARM TAUGHT AND PATIENT VERBALIZES BACK UNDERSTANDING. PATIENT STILL REFUSES BED ALARM DESPITE TEACHING. BED AT LOWEST POSITION, BED LOCKED. FALL, RESPIRATORY, ASPIRATION, AND SAFETY PRECAUTIONS IN PLACE. PATIENT DEMONSTRATES PROPER CALL LIGHT USAGE. WILL CONTINUE TO MONITOR.
[2021-06-19 20:00] VITALS: BP_SYST 123
--- NOTE | 2021-06-19 20:30 | NUR ---
EXPLAINED TO PATIENT THAT PATIENT'S CAR THAT IS PARKED NEAR THE DOCTOR'S OFFICES WILL NOT BE TOWED PER SECURITY. WILL CONTINUE CARE.
[2021-06-19] MEDS: AMOXICILLIN/CLAVULANATE POTASSIUM 500 MG TABLET PO SCH (21:40)
[2021-06-19] MEDS: CLARITHROMYCIN 500 MG TABLET PO SCH (21:40)
[2021-06-20] VITALS: BP_SYST 109
--- NOTE | 2021-06-20 01:21 | NUR ---
IV ADMINISTRATION END TIME (Observation Patients ONLY): IV infusion of D5NS started at 06/19 1410 and ended at 06/20 100.
[2021-06-20] MEDS: ACETAMINOPHEN 500 MG TABLET PO SCH ×2 (06:02→14:06)
--- NOTE | 2021-06-20 06:29 | NUR ---
CLOSING NOTES PATIENT RESTING, NO SIGNS OF DISTRESS NOTED AT THIS TIME. PAIN MONITORED THROUGHOUT SHIFT. CALL LIGHT WITHIN REACH, BED ALARM OFF PER PATIENT REQUEST AFTER RISKS AND BENEFITS OF BED ALARM TAUGHT, BED AT LOWEST POSITION, BED LOCKED. FALL, RESPIRATORY, ASPIRATION, AND SAFETY PRECAUTIONS IN PLACE THROUGHOUT SHIFT. PATIENT DEMONSTRATED PROPER CALL LIGHT USAGE. ALL NEEDS MET THROUGHOUT SHIFT. WILL ENDORSE CARE TO ONCOMING SHIFT.
[2021-06-20 07:08] LABS: BASOPHILS % (AUTO) 0.5 % (0.0-2.0); EOSINOPHILS # (AUTO) 0.1 K/uL (0.0-0.4); EOSINOPHILS % (AUTO) 2.2 % (0.0-4.0); HEMATOCRIT 40.1 % (36-54); HEMOGLOBIN 13.9 g/dL (14.0-18.0); LYMPHOCYTES # (AUTO) 1.7 K/uL (1.0-5.5); LYMPHOCYTES % (AUTO) 30.3 % (20.5-51.5); MEAN CORPUSCULAR HEMOGLOBIN 32 pg (27-31); MEAN CORPUSCULAR HGB CONC 35 % (32-36); MEAN CORPUSCULAR VOLUME 92 fL (79.0-98.0); MONOCYTES # (AUTO) 0.7 K/uL (0.0-1.0); MONOCYTES % (AUTO) 12.1 % (1.7-9.3); NEUTROPHILS # (AUTO) 3.1 K/uL (1.8-7.7); NEUTROPHILS % (AUTO) 54.9 % (40.0-70.0); PLATELET COUNT (AUTO) 232 K/uL (130-430); RED BLOOD CELL COUNT(AUTO) 4.35 MIL/uL (4.2-6.2); RED CELL DISTRIBUTION WIDTH 13.4 % (9.0-15.0); WHITE BLOOD COUNT (AUTO) 5.6 K/uL (4.8-10.8)
[2021-06-20 07:32] LABS: CALCIUM 8.6 mg/dL (8.4-11.0); CREATININE 0.78 mg/dL (0.55-1.30); POTASSIUM 4.3 mmol/L (3.5-5.1)
[2021-06-20 08:00] VITALS: BP_SYST 123
--- NOTE | 2021-06-20 08:00 | NUR ---
OPENING NOTES AWAKE, ALERT AND ORIENTED. NO SHORTNESS OF BREATH ON ROOM AIR. FEELS 8/10 PAIN ON THE THROAT EVEN AFTER TYLENOL. SAID THAT HE CAN WAIT FOR THE NEXT SCHEDULED MEDICATION BECAUSE PAIN IS ONLY FELT WHEN COUGHING. FALL AND SAFETY CHECKS DONE. CALL LIGHT WITHIN REACH. WILL MONITOR.
[2021-06-20] MEDS ORDERED: PANTOPRAZOLE SODIUM 40 MG TAB PO SCH (09:00)
[2021-06-20] MEDS ORDERED: lisinopriL 20 MG TABLET PO SCH (09:00)
[2021-06-20] MEDS ORDERED: VARENICLINE TARTRATE 0.5 MG PO SCH (09:00)
[2021-06-20] MEDS ORDERED: LACTOBACILLUS RHAMNOSUS GG 1 CAP CAPSULE PO SCH (09:00)
[2021-06-20] MEDS ORDERED: HYDROCHLOROTHIAZIDE 25 MG TABLET (HCTZ) PO SCH (09:00)
[2021-06-20] MEDS: AMOXICILLIN/CLAVULANATE POTASSIUM 500 MG TABLET PO SCH (10:27)
[2021-06-20] MEDS: CLARITHROMYCIN 500 MG TABLET PO SCH (10:27)
[2021-06-20 11:24] VITALS: BP_SYST 127
[2021-06-20] MEDS ORDERED: NA PHOS 30 MM in NS 250 ML IV ONE (11:30)
--- NOTE | 2021-06-20 12:00 | NUR ---
ROUNDS PAIN IS CONTROLLED AT THIS TIME PER PATIENT. EXPLAINED THAT HE HAS AN IV FLUID REPLACEMENT DUE, VERBALIZED UNDERSTANDING. WILL ADMINISTER.
--- NOTE | 2021-06-20 12:06 | NUR ---
IV ADMINISTRATION END TIME (Observation Patients ONLY): IV infusion of NaPhos w/ NS at 43cc/hr started at 1206 and ended at 1840.
[2021-06-20] MEDS ORDERED: LISI20TA30 PO (14:29)
[2021-06-20 15:36] VITALS: BP_SYST 122
[2021-06-20 16:13] VITALS: BP_SYST 122
--- NOTE | 2021-06-20 16:42 | NUR ---
TRANSFER OF CARE ENDORSED TO MS. WALLY RN. FOR DISCHARGE. STILL COMPLETING IV FLUID REPLACEMENT. ALL NEEDS MET.
--- NOTE | 2021-06-20 16:53 | NUR ---
IV ADMINISTRATION END TIME (Observation Patients ONLY): late entry IV infusion of D5NS at 100ml/h started at 14:10 on 06/19 and ended at 00:10 06/20/21.
--- NOTE | 2021-06-20 18:50 | NUR ---
D/C Patient Patient given medication reconciliation form and D/C instructions. Exit Care provided. Patient verbalized understanding. MD discussed with patient the results and treatment provided. Ambulatory with steady gait for discharge to home. Patient in stable condition, ID band removed. Sodium Phospate 30 millimoles started at 12:06 and ended at 1840. IV catheter removed, intact and dressing applied, no active bleeding. Rx of Lisinopril given. Patient educated on pain management. All belongings sent with patient.
--- NOTE | 2021-06-21 08:35 | NUR ---
Disposition 01
== END 2021-06-20 18:50 | disposition home or self-care (01) ==
LOC: SED 10:00 → SMU 12:07
PROVIDERS: ADMIT Preventive Medicine Preventive Medicine/Occupational Environmental Medicine; ATTEND Preventive Medicine Preventive Medicine/Occupational Environmental Medicine
DX: D72.829 Elevated white blood cell count, unspecified (principal); Z20.822 Contact with and (suspected) exposure to COVID-19; E87.1 Hypo-osmolality and hyponatremia; K85.20 Alcohol induced acute pancreatitis without necrosis or infection; K27.9 Peptic ulcer, site unspecified, unspecified as acute or chronic, without hemorrhage or perforation; F10.10 Alcohol abuse, uncomplicated; K29.70 Gastritis, unspecified, without bleeding; E87.8 Other disorders of electrolyte and fluid balance, not elsewhere classified; R73.9 Hyperglycemia, unspecified; K21.9 Gastro-esophageal reflux disease without esophagitis; I10 Essential (primary) hypertension; G89.4 Chronic pain syndrome; E83.39 Other disorders of phosphorus metabolism; R11.2 Nausea with vomiting, unspecified; E83.42 Hypomagnesemia; E66.01 Morbid (severe) obesity due to excess calories; J44.9 Chronic obstructive pulmonary disease, unspecified; F17.200 Nicotine dependence, unspecified, uncomplicated; Z79.899 Other long term (current) drug therapy
CPT/HCPCS: 36415 ×2; 71045; 80048; 80053; 83690; 83735; 84100; 84484; 85025 ×2; 87426; 93005; 96360; 96361 ×2; 97162; 99291; G0378 ×2; G0482; J2001; J7050; Q0162

== ENCOUNTER 2021-08-03 09:16 | Emergency (ER) | payer MEDICAID ==
[~2021-08-03] VITALS: Ht 175.3 cm; Wt 98.0 kg
[~2021-08-03 09:16] MED LIST changes: +LISI20TA30 PO
[2021-08-03 09:17] VITALS: BP_SYST 162
[2021-08-03] MEDS ORDERED: TRAM50TA2 PO (10:14)
[2021-08-03 10:18] VITALS: BP_SYST 151
== END 2021-08-03 10:25 | disposition home or self-care (01) ==
LOC: SED 09:16
DX: S63.602A Unspecified sprain of left thumb, initial encounter (principal); I10 Essential (primary) hypertension; K21.9 Gastro-esophageal reflux disease without esophagitis; F17.210 Nicotine dependence, cigarettes, uncomplicated; Z79.899 Other long term (current) drug therapy; X50.1XXA Overexertion from prolonged static or awkward postures, initial encounter; Y93.89 Activity, other specified; Y92.89 Other specified places as the place of occurrence of the external cause; Y99.8 Other external cause status
CPT/HCPCS: 73140-TC; 99283